=== PATIENT | male | born 1975 | race African-American/Black ===

== ENCOUNTER 2019-08-20 17:29 | Inpatient (IN) | payer OTHER ==
[2019-08-20 20:29] VITALS: BMI 29.5
--- NOTE | 2019-08-21 01:41 | HP ---
CIWA Score Nausea/Vomitin-Mild Nausea/No Vomiting Muscle Tremors: 4-Moderate,w/Arms Extend Anxiety: 3 Agitation: 3 Paroxysmal Sweats: No Perspiration Orientation: 0-Oriented Tacttile Disturbances: 0-None Auditory Disturbances: 0-None Visual Disturbances: 1-Very Mild Sensitivity Headache: 2-Mild CIWA-Ar Total Score: 14 - Admission Criteria [facility]ASAS Guidelines: Admission for Medically Managed Detox: Requires at least one of the followin. CIWA greater than 12 2. Seizures within the past 24 hours 3. Delirium tremens within the past 24 hours 4. Hallucinations within the past 24 hours 5. Acute intervention needed for co occurring medical disorder 6. Acute intervention needed for co occurring psychiatric disorder 7. Severe withdrawal that cannot be handled at a lower level of care (continued vomiting, continued diarrhea, abnormal vital signs) requiring intravenous medication and/or fluids 8. Admission ROS [facility] Chief Complaint: Alcohol withdrawal symptoms Allergies/Adverse Reactions: Allergies Allergy/AdvReac Type Severity Reaction Status Date / Time Pork/Porcine Containing Allergy Verified 08/20/19 20:17 Products History of Present Illness: Alcohol withdrawal symptoms - Ebola screening Have you traveled outside of the country in the last 21 days: No (N) Have you had contact with anyone from an Ebola affected area: No Do you have a fever: No - Review of Systems Constitutional: Chills, Malaise, Night Sweats, Changes in sleep EENT: reports: Nose Congestion Respiratory: reports: No Symptoms reported Cardiac: reports: No Symptoms Reported GI: reports: Abdominal Distended, Vomiting : reports: No Symptoms Reported Musculoskeletal: reports: No Symptoms Reported Integumentary: reports: Dryness, Flushing Neuro: reports: Tremors Endocrine: reports: No Symptoms Reported Hematology: reports: No Symptoms Reported Psychiatric: reports: Judgement Intact Other Systems: Reviewed and Negative Patient History - Patient Medical History Hx Anemia: No Hx Asthma: Yes (Albuterol) Hx Chronic Obstructive Pulmonary Disease (COPD): No Hx Cancer: No Hx Cardiac Disorders: No Hx Hypertension: No Hx Hypercholesterolemia: No Hx Pacemaker: No HX Cerebrovascular Accident: No Hx Seizures: No Hx Diabetes: No Hx Gastrointestinal Disorders: Yes (GERD) Hx Liver Disease: No Hx Genitourinary Disorders: No Hx Sexually Transmitted Disorders: No Hx Renal Disease (ESRD): No Hx Thyroid Disease: No Hx Human Immunodeficiency Virus (HIV): Yes Hx Hepatitis C: No Hx Depression: Yes Hx Suicide Attempt: No (Denies suicidal ideation at this time) Hx Bipolar Disorder: No Hx Schizophrenia: No - Patient Surgical History Past Surgical History: No - PPD History Previous Implant?: No Documented Results: Negative w/proof Implanted On Prior R Admission?: No PPD to be Administered?: Yes - Reproductive History Patient is a Female of Child Bearing Age (11 -55 yrs old): No (male) Patient : No - Smoking Cessation Smoking history: Current every day smoker Have you smoked in the past 12 months: Yes Hx Chewing Tobacco Use: Yes Initiated information on smoking cessation: No - Substance & Tx. History Hx Alcohol Use: No Hx Substance Use: No - Substances abused Alcohol Substance route: Oral Frequency: Daily Amount used: liquor- 1 pint, beer- 1 six pack Age of first use: 15 Date of last use: 08/20/19 Crack Substance route: Smoking Frequency: Daily Amount used: $100 worth Age of first use: 29 Date of last use: 08/20/19 Admission Physical Exam [facility] - Vital Signs Vital Signs: Vital Signs - 24 hr 08/20/19 20:12 Temperature 96.9 F L Pulse Rate 87 Respiratory 16 Rate Blood Pressure 109/63 - Physical General Appearance: Yes: Moderate Distress HEENTM: Yes: Within Normal Limits Respiratory: Yes: Lungs Clear Neck: Yes: Supple Breast: Yes: Breast Exam Deferred Cardiology: Yes: Regular Rhythm, Regular Rate Abdominal: Yes: Normal Bowel Sounds Genitourinary: Yes: Within Normal Limits Back: Yes: Normal Inspection Musculoskeletal: Yes: Within Normal Limits Extremities: Yes: Normal Capillary Refill Neurological: Yes: Within Normal Limits Integumentary: Yes: Warm Lymphatic: Yes: Within Normal Limits Cleared for Admission S - Detox or Rehab [facility] Level of Care: Medically Managed Detox Regimen/Protocol: Ativan Breathalyzer - Breathalyzer Breathalyzer: 0 Urine Drug Screen - Test Device Lot number: [id number] Expiration date: 04/08/21 - Control Is test valid?: Yes - Results Drug screen NEGATIVE: No Urine drug screen results: THC-Marijuana, SHELLEY-Cocaine Inpatient Rehab Admission - Rehab Decision to Admit Inpatient rehab admission?: No
[2019-08-21] MEDS ORDERED: MAG HYDROX/AL HYDROX/SIMETH 30 ML UNIT-DOSE CUP PO PRN (02:37)
[2019-08-21] MEDS ORDERED: MELATONIN 5 MG TABLETS PO PRN (02:37)
[2019-08-21] MEDS ORDERED: METHOCARBAMOL 500 MG TABLET PO PRN (02:37)
[2019-08-21] MEDS ORDERED: MENTHOL/PHENOL 1 EACH UD MM PRN (02:37)
[2019-08-21] MEDS ORDERED: LORazepam 2 MG TABLET PO ONE (02:37)
[2019-08-21] MEDS ORDERED: hydrOXYzine PAMOATE 25 MG CAPSULE (FP) PO PRN (02:37)
[2019-08-21] MEDS ORDERED: NICOTINE POLACRILEX 2 MG GUM BUC PRN (02:37)
[2019-08-21] MEDS ORDERED: MAGNESIUM HYDROX 2400MG/30ML ORAL SUSPENSION 30 ML CUP PO PRN (02:37)
[2019-08-21] MEDS ORDERED: BISMUTH SUBSALICYLATE 524 MG/30 ML UD PO PRN (02:37)
[2019-08-21] MEDS ORDERED: ACETAMINOPHEN 325 MG TABLET (FP) PO PRN ×2 (02:37)
[2019-08-21] MEDS ORDERED: IBUPROFEN 400 MG TABLET (FP) PO PRN (02:37)
[2019-08-21] MEDS ORDERED: MAGNESIUM CITRATE 300 ML BOTTLE PO PRN (02:37)
[2019-08-21] MEDS ORDERED: LORazepam 1 MG TABLET PO PRN (02:37)
[2019-08-21] MEDS ORDERED: METHIMAZOLE 5 MG TABLET (FP) PO SCH (10:00)
[2019-08-21] MEDS ORDERED: PATIENT'S OWN MEDICATION (NON-FORMULARY) (Ranitidine Hcl [Zantac] 150 MG) PO SCH (10:00)
[2019-08-21] MEDS: PRENATAL VITAMINS W/ FOLIC ACID TABLET (FP) PO SCH (10:56)
[2019-08-21] MEDS: METHIMAZOLE 5 MG PO SCH (10:56)
[2019-08-21] MEDS: ALBUTEROL SO4 8 GM HFA INHALER IH SCH ×2 (10:58→22:47)
[2019-08-21] MEDS: NICOTINE 14 MG/24 HOURS TOPICAL PATCH TD SCH (11:05)
--- NOTE | 2019-08-21 12:30 | PN ---
[facility] CIWA - CIWA Score Nausea/Vomitin-Mild Nausea/No Vomiting Muscle Tremors: 2 Anxiety: 3 Agitation: 3 Paroxysmal Sweats: No Perspiration Orientation: 0-Oriented Tacttile Disturbances: 1-Very Mild Itch/Numbness Auditory Disturbances: 0-None Visual Disturbances: 0-None Headache: 2-Mild CIWA-Ar Total Score: 12 BHS Progress Note (SOAP) Subjective: alert,irritable,anxious,tremor,agitated,interrupted sleep,pain in the bodywheelchair bound Objective: 08/21/19 12:30 Vital Signs Temperature 97.8 F 08/21/19 09:15 Pulse Rate 101 H 08/21/19 09:15 Respiratory Rate 18 08/21/19 09:15 Blood Pressure 106/55 L 08/21/19 09:15 O2 Sat by Pulse Oximetry (%) Assessment: 08/21/19 12:30 withdrawal symptom Plan: continue detox ativan regimen,continue amoxicillin 500 mgs po tid,biktarvy, address the medications patient agree to take pepcid 20 mgs po daily instead of zantac
--- NOTE | 2019-08-21 12:58 | EKG ---
Test Reason : Blood Pressure : / mmHG Vent. Rate : 065 BPM Atrial Rate : 065 BPM P-R Int : 126 ms QRS Dur : 090 ms QT Int : 402 ms P-R-T Axes : 044 052 037 degrees QTc Int : 418 ms NORMAL SINUS RHYTHM NORMAL ECG NO PREVIOUS ECGS AVAILABLE Confirmed by MONTSE MO MD ([id number]) on 08/21/2019 12:58:08 PM Referred By: EMMA Confirmed By:MONTSE MO MD
[2019-08-21] MEDS: PATIENT'S OWN MEDICATION (NON-FORMULARY) (Bictegrav/Emtricit/Tenofov Ala 1 EACH) PO SCH (13:43)
[2019-08-21] MEDS: FAMOTIDINE 20 MG TABLET PO SCH (13:44)
[2019-08-21] MEDS: THIAMINE HCL 100 MG TABLET (FP) PO SCH (22:45)
[2019-08-21] MEDS: LORazepam 2 MG TABLET PO SCH (22:45)
[2019-08-22] MEDS: LORazepam 2 MG TABLET PO SCH ×4 (06:03→22:59)
[2019-08-22] MEDS: METHIMAZOLE 5 MG PO SCH (10:10)
[2019-08-22] MEDS: PATIENT'S OWN MEDICATION (NON-FORMULARY) (Bictegrav/Emtricit/Tenofov Ala 1 EACH) PO SCH (10:10)
[2019-08-22] MEDS: PRENATAL VITAMINS W/ FOLIC ACID TABLET (FP) PO SCH (10:11)
[2019-08-22] MEDS: FAMOTIDINE 20 MG TABLET PO SCH (10:11)
[2019-08-22] MEDS: ALBUTEROL SO4 8 GM HFA INHALER IH SCH ×2 (10:11→22:58)
[2019-08-22] MEDS: NICOTINE 14 MG/24 HOURS TOPICAL PATCH TD SCH (10:13)
[2019-08-22 10:37] LABS: HEMATOCRIT 39.7 % (35.4-49); HEMOGLOBIN 13.2 GM/dL (11.7-16.9); MCH 32.3 pg (25.7-33.7); MCHC 33.2 g/dl (32.0-35.9); MEAN CELL VOLUME 97.4 fl (80-96); MEAN PLT VOLUME 8.4 fl (7.5-11.1); PLATELET COUNT 269 K/MM3 (134-434); RBC 4.07 M/mm3 (4.00-5.60); RDW 13.9 % (11.9-15.9)
[2019-08-22 10:49] LABS: ALBUMIN 3.4 g/dl (3.4-5.0); BILIRUBIN,TOTAL 0.3 mg/dL (0.2-1); BLOOD UREA NITROGEN 12.6 mg/dL (7-18); CALCIUM 8.6 mg/dL (8.5-10.1); POTASSIUM 4.1 mmol/L (3.5-5.1)
--- NOTE | 2019-08-22 11:11 | PN ---
S CIWA - CIWA Score Nausea/Vomitin-No Nausea/No Vomiting Muscle Tremors: 2 Anxiety: 3 Agitation: 0-Normal Activity Paroxysmal Sweats: 3 Orientation: 0-Oriented Tacttile Disturbances: 0-None Auditory Disturbances: 0-None Visual Disturbances: 0-None Headache: 2-Mild CIWA-Ar Total Score: 10 S Progress Note (SOAP) Subjective: c/o headache, sweats, anxiety, and mild shakes. Objective: 08/22/19 11:10 Vital Signs 08/22/19 08/22/19 08/22/19 03:30 06:03 09:16 Pulse Rate 80 88 Respiratory 18 18 18 Rate Blood Pressure 97/60 100/59 L Laboratory Last Values WBC 3.0 K/mm3 (4.0-10.0) L 08/22/19 08:10 RBC 4.07 M/mm3 (4.00-5.60) 08/22/19 08:10 Hgb 13.2 GM/dL (11.7-16.9) 08/22/19 08:10 Hct 39.7 % (35.4-49) 08/22/19 08:10 MCV 97.4 fl (80-96) H 08/22/19 08:10 MCH 32.3 pg (25.7-33.7) 08/22/19 08:10 MCHC 33.2 g/dl (32.0-35.9) 08/22/19 08:10 RDW 13.9 % (11.9-15.9) 08/22/19 08:10 Plt Count 269 K/MM3 (134-434) 08/22/19 08:10 MPV 8.4 fl (7.5-11.1) 08/22/19 08:10 Sodium 141 mmol/L (136-145) 08/22/19 08:10 Potassium 4.1 mmol/L (3.5-5.1) 08/22/19 08:10 Chloride 107 mmol/L (98-107) 08/22/19 08:10 Carbon Dioxide 26 mmol/L (21-32) 08/22/19 08:10 Anion Gap 8 MMOL/L (8-16) 08/22/19 08:10 BUN 12.6 mg/dL (7-18) 08/22/19 08:10 Creatinine 1.0 mg/dL (0.55-1.3) 08/22/19 08:10 Est GFR (CKD-EPI)AfAm 107.12 08/22/19 08:10 Est GFR (CKD-EPI)NonAf 92.42 08/22/19 08:10 Random Glucose 133 mg/dL (74-106) H 08/22/19 08:10 Calcium 8.6 mg/dL (8.5-10.1) 08/22/19 08:10 Total Bilirubin 0.3 mg/dL (0.2-1) 08/22/19 08:10 AST 38 U/L (15-37) H 08/22/19 08:10 ALT 54 U/L (13-61) 08/22/19 08:10 Alkaline Phosphatase 72 U/L (45-117) 08/22/19 08:10 Total Protein 6.0 g/dl (6.4-8.2) L 08/22/19 08:10 Albumin 3.4 g/dl (3.4-5.0) 08/22/19 08:10 Labs noted. Assessment: 08/22/19 11:10 AOX3, in no acute respiratory distress. Full ROM, ambulating in the unit. Withdrawal symptoms. Plan: continue detox.
[2019-08-22] MEDS: THIAMINE HCL 100 MG TABLET (FP) PO SCH (22:59)
[2019-08-23] MEDS: LORazepam 1 MG TABLET PO SCH ×4 (05:36→22:49)
[2019-08-23] MEDS: METHIMAZOLE 5 MG PO SCH (10:00)
[2019-08-23] MEDS: PATIENT'S OWN MEDICATION (NON-FORMULARY) (Bictegrav/Emtricit/Tenofov Ala 1 EACH) PO SCH (10:00)
[2019-08-23] MEDS: PRENATAL VITAMINS W/ FOLIC ACID TABLET (FP) PO SCH (10:01)
[2019-08-23] MEDS: FAMOTIDINE 20 MG TABLET PO SCH (10:01)
[2019-08-23] MEDS: NICOTINE 14 MG/24 HOURS TOPICAL PATCH TD SCH (10:02)
[2019-08-23] MEDS: ALBUTEROL SO4 8 GM HFA INHALER IH SCH ×2 (10:02→21:15)
--- NOTE | 2019-08-23 13:17 | PN ---
S CIWA - CIWA Score Nausea/Vomitin-No Nausea/No Vomiting Muscle Tremors: 2 Anxiety: 2 Agitation: 1-Slight > Activity Paroxysmal Sweats: No Perspiration Orientation: 0-Oriented Tacttile Disturbances: 0-None Auditory Disturbances: 0-None Visual Disturbances: 0-None Headache: 0-None Present CIWA-Ar Total Score: 5 BHS Progress Note (SOAP) Subjective: 44 years old male admitted on 08/21/19 for alcohol withdrawal sx management treating with ativan detox regimen ambulating with [employer] wheelchair on hallway patient states that his wheelchair is in his "property" with the security wheelchair x "a long time" due to weakness of the hips and knees patient requests to leave the detox on 08/24/19 instead of estimated discharge date of 08/25/19 patent wants to begin recovery journey tomorrow to aftercare facility Objective: 08/23/19 13:16 Vital Signs Temperature 96.6 F L 08/23/19 13:09 Pulse Rate 94 H 08/23/19 13:09 Respiratory Rate 18 08/23/19 13:09 Blood Pressure 112/62 08/23/19 13:09 O2 Sat by Pulse Oximetry (%) Laboratory Last Values WBC 3.0 K/mm3 (4.0-10.0) L 08/22/19 08:10 RBC 4.07 M/mm3 (4.00-5.60) 08/22/19 08:10 Hgb 13.2 GM/dL (11.7-16.9) 08/22/19 08:10 Hct 39.7 % (35.4-49) 08/22/19 08:10 MCV 97.4 fl (80-96) H 08/22/19 08:10 MCH 32.3 pg (25.7-33.7) 08/22/19 08:10 MCHC 33.2 g/dl (32.0-35.9) 08/22/19 08:10 RDW 13.9 % (11.9-15.9) 08/22/19 08:10 Plt Count 269 K/MM3 (134-434) 08/22/19 08:10 MPV 8.4 fl (7.5-11.1) 08/22/19 08:10 Sodium 141 mmol/L (136-145) 08/22/19 08:10 Potassium 4.1 mmol/L (3.5-5.1) 08/22/19 08:10 Chloride 107 mmol/L (98-107) 08/22/19 08:10 Carbon Dioxide 26 mmol/L (21-32) 08/22/19 08:10 Anion Gap 8 MMOL/L (8-16) 08/22/19 08:10 BUN 12.6 mg/dL (7-18) 08/22/19 08:10 Creatinine 1.0 mg/dL (0.55-1.3) 08/22/19 08:10 Est GFR (CKD-EPI)AfAm 107.12 08/22/19 08:10 Est GFR (CKD-EPI)NonAf 92.42 08/22/19 08:10 Random Glucose 133 mg/dL (74-106) H 08/22/19 08:10 Calcium 8.6 mg/dL (8.5-10.1) 08/22/19 08:10 Total Bilirubin 0.3 mg/dL (0.2-1) 08/22/19 08:10 AST 38 U/L (15-37) H 08/22/19 08:10 ALT 54 U/L (13-61) 08/22/19 08:10 Alkaline Phosphatase 72 U/L (45-117) 08/22/19 08:10 Total Protein 6.0 g/dl (6.4-8.2) L 08/22/19 08:10 Albumin 3.4 g/dl (3.4-5.0) 08/22/19 08:10 RPR Titer Nonreactive (NONREACTIVE) 08/22/19 08:10 lab noted patient agrees to bringing in lab report to ID provider for follow health teaching on weight loss Assessment: 08/23/19 13:17 alcohol withdrawal Plan: ativan regimen
[2019-08-23] MEDS ORDERED: BUDESONIDE/FORMETEROL FUMARATE 80/4.5 mcg INHALER IH SCH (22:00)
[2019-08-23] MEDS: THIAMINE HCL 100 MG TABLET (FP) PO SCH (22:49)
[2019-08-24] MEDS ORDERED: LORazepam 0.5 MG TABLET PO PRN
[2019-08-24] MEDS ORDERED: LORazepam 0.5 MG TABLET PO SCH (05:00)
[2019-08-24 09:16] VITALS: BP 140/82; PULSE 93; TEMP 97.8
--- NOTE | 2019-08-24 09:45 | DS ---
[facility] Detox Discharge Summary Admission Date: 08/21/19 Discharge Date: 08/24/19 - History Present History: Alcohol Dependence Additional Comments: 44 years old male admitted on 08/21/19 for alcohol withdrawal sx management treated with ativan detox regimen patient tolerated well alert oriented x 3 cardiac s1s2 regular rate rhythm respiratory clear lung bilaterally on auscultation ambulating with wheelchair skin warm and dry Pertinent Past History: patient prefers to leave the detox facility one day early than estimated date on 08/25/19 reports feeling better today case discuss with the nurse that routine discharge is appropriated - Physical Exam Results Vital Signs: Vital Signs Temperature 97.8 F 08/24/19 09:16 Pulse Rate 93 H 08/24/19 09:16 Respiratory Rate 18 08/24/19 09:16 Blood Pressure 140/82 08/24/19 09:16 O2 Sat by Pulse Oximetry (%) Pertinent Admission Physical Exam Findings: alcohol withdrawal Laboratory Last Values WBC 3.0 K/mm3 (4.0-10.0) L 08/22/19 08:10 RBC 4.07 M/mm3 (4.00-5.60) 08/22/19 08:10 Hgb 13.2 GM/dL (11.7-16.9) 08/22/19 08:10 Hct 39.7 % (35.4-49) 08/22/19 08:10 MCV 97.4 fl (80-96) H 08/22/19 08:10 MCH 32.3 pg (25.7-33.7) 08/22/19 08:10 MCHC 33.2 g/dl (32.0-35.9) 08/22/19 08:10 RDW 13.9 % (11.9-15.9) 08/22/19 08:10 Plt Count 269 K/MM3 (134-434) 08/22/19 08:10 MPV 8.4 fl (7.5-11.1) 08/22/19 08:10 Sodium 141 mmol/L (136-145) 08/22/19 08:10 Potassium 4.1 mmol/L (3.5-5.1) 08/22/19 08:10 Chloride 107 mmol/L (98-107) 08/22/19 08:10 Carbon Dioxide 26 mmol/L (21-32) 08/22/19 08:10 Anion Gap 8 MMOL/L (8-16) 08/22/19 08:10 BUN 12.6 mg/dL (7-18) 08/22/19 08:10 Creatinine 1.0 mg/dL (0.55-1.3) 08/22/19 08:10 Est GFR (CKD-EPI)AfAm 107.12 08/22/19 08:10 Est GFR (CKD-EPI)NonAf 92.42 08/22/19 08:10 Random Glucose 133 mg/dL (74-106) H 08/22/19 08:10 Calcium 8.6 mg/dL (8.5-10.1) 08/22/19 08:10 Total Bilirubin 0.3 mg/dL (0.2-1) 08/22/19 08:10 AST 38 U/L (15-37) H 08/22/19 08:10 ALT 54 U/L (13-61) 08/22/19 08:10 Alkaline Phosphatase 72 U/L (45-117) 08/22/19 08:10 Total Protein 6.0 g/dl (6.4-8.2) L 08/22/19 08:10 Albumin 3.4 g/dl (3.4-5.0) 08/22/19 08:10 RPR Titer Nonreactive (NONREACTIVE) 08/22/19 08:10 lab noted patient agrees to bring in lab report to ID provider for follow up - Treatment Hospital Course: Detox Protocol Followed, Detoxed Safely, Responded well, Discharged Condition Good, Rehab Referral Accepted Patient has Accepted a Re[facility] Referral to: [facility] - Medication Discharge Medications: Ambulatory Orders Albuterol Sulfate Inhaler - [Ventolin HFA Inhaler -] 2 inh PO BID 08/20/19 Amoxicillin - [Amoxicillin 500mg Capsule -] 500 mg PO TID 08/20/19 Bictegrav/Emtricit/Tenofov Ala [Biktarvy 50-200-25 mg Tablet] 1 each PO DAILY Ibuprofen [Motrin -] 800 mg PO PRN 08/20/19 Methimazole [Tapazole] 5 mg PO DAILY 08/20/19 Ranitidine HCl [Zantac] 150 mg PO DAILY 08/20/19 Budesonide/Formeterol Fumarate [SYMBICORT 80/4.5mcg -] 1 inh PO BID 08/23/19 - Diagnosis (1) Alcohol dependence, uncomplicated Status: Acute (2) HIV (human immunodeficiency virus infection) Status: Chronic Qualifiers: HIV symptom status: asymptomatic Qualified Code(s): Z21 - Asymptomatic human immunodeficiency virus [HIV] infection status (3) Asthma Status: Chronic Qualifiers: Asthma severity: mild Asthma persistence: intermittent Asthma complication type: with status asthmaticus Qualified Code(s): J45.22 - Mild intermittent asthma with status asthmaticus (4) COPD (chronic obstructive pulmonary disease) Status: Chronic 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 Qualified Code(s): J43.8 - Other emphysema (5) Hyperthyroidism Status: Chronic (6) GERD (gastroesophageal reflux disease) Status: Chronic Qualifiers: Esophagitis presence: without esophagitis Qualified Code(s): K21.9 - Gastro -esophageal reflux disease without esophagitis - AMA Did Patient Leave Against Medical Advice: No CIWA Score - CIWA Score Nausea/Vomitin-No Nausea/No Vomiting Muscle Tremors: 2 Anxiety: 1-Mildly Anxious Agitation: 0-Normal Activity Paroxysmal Sweats: No Perspiration Orientation: 0-Oriented Tacttile Disturbances: 0-None Auditory Disturbances: 0-None Visual Disturbances: 0-None Headache: 0-None Present CIWA-Ar Total Score: 3
[2019-08-25] MEDS ORDERED: LORazepam 0.5 MG TABLET PO ONE (05:00)
== END 2019-08-24 09:38 | disposition home or self-care (01) | DRG 897 ==
LOC: YASAS 17:29 → Y3N 08-21 01:55
PROVIDERS: ADMIT Allergy & Immunology; ATTEND Allergy & Immunology
PROC: HZ2ZZZZ Detoxification Services for Substance Abuse Treatment (ICD-10-PCS; principal; 2019-08-21)
DX: F10.230 Alcohol dependence with withdrawal, uncomplicated (principal); F14.20 Cocaine dependence, uncomplicated; J45.22 Mild intermittent asthma with status asthmaticus; F17.210 Nicotine dependence, cigarettes, uncomplicated; Z21 Asymptomatic human immunodeficiency virus [HIV] infection status; J43.8 Other emphysema; E05.90 Thyrotoxicosis, unspecified without thyrotoxic crisis or storm; K21.9 Gastro-esophageal reflux disease without esophagitis; Z91.018 Allergy to other foods
CPT/HCPCS: 36415; 80053; 85027; 86593; 93005; 93010

== ENCOUNTER 2024-04-15 20:01 | Inpatient (IN) | payer OTHER ==
[2024-04-15] MEDS ORDERED: DICYCLOMINE HCL 10 MG CAPSULE PO PRN (22:11)
[2024-04-15] MEDS ORDERED: MAGNESIUM HYDROX 2400MG/30ML ORAL SUSPENSION 30 ML CUP PO PRN (22:11)
[2024-04-15] MEDS ORDERED: ONDANSETRON *ODT* 4 MG TABLET SL PRN (22:11)
[2024-04-15] MEDS ORDERED: guaiFENesin 600 MG TABLET.ER (FP) PO PRN (22:11)
[2024-04-15] MEDS ORDERED: ACETAMINOPHEN 325 MG TABLET (FP) PO PRN (22:11)
[2024-04-15] MEDS ORDERED: NALOXONE (NARCAN) HCL 4 MG/0.1 ML SPRAY NS PRN (22:11)
[2024-04-15] MEDS ORDERED: IBUPROFEN 400 MG TABLET (FP) PO PRN (22:11)
[2024-04-15] MEDS ORDERED: IBUPROFEN 600 MG TABLET (FP) PO PRN (22:11)
[2024-04-15] MEDS ORDERED: NICOTINE POLACRILEX 4 MG GUM BUC PRN (22:11)
[2024-04-15] MEDS ORDERED: hydrOXYzine PAMOATE 25 MG CAPSULE (FP) PO PRN (22:11)
[2024-04-15] MEDS ORDERED: METHOCARBAMOL 500 MG TABLET PO PRN (22:11)
[2024-04-15] MEDS ORDERED: MAG HYDROX/AL HYDROX/SIMETH 30 ML UNIT-DOSE CUP PO PRN (22:11)
[2024-04-15] MEDS ORDERED: LOPERAMIDE HCL 2 MG CAPSULE PO PRN (22:11)
[2024-04-15] MEDS ORDERED: NALOXONE HCL 0.4 MG/ML VIAL IM PRN (22:11)
[2024-04-15] MEDS ORDERED: BENZOCAINE/MENTHOL (CHLORASEPTIC ) LOZENGE MM PRN (22:11)
[2024-04-15] MEDS ORDERED: POLYETHYLENE GLYCOL (HEALTHYLAX) 3350 17 GM PACKET PO PRN (22:11)
[2024-04-15] MEDS ORDERED: BENZONATATE 200 MG CAPSULE PO PRN (22:11)
[2024-04-15] MEDS ORDERED: BISMUTH SUBSALICYLATE 524 MG/30 ML PO PRN (22:11)
[2024-04-15 22:17] VITALS: BMI 29.3
[2024-04-15] MEDS ORDERED: ALBUTEROL SO4 HFA INHALER IH PRN (22:19)
[2024-04-16] MEDS: BICTEGRAV/EMTRICIT/TENOFOV (BIKTARVY) 50-200-25 MG TABLET PO SCH (08:47)
[2024-04-16] MEDS ORDERED: chlordiazePOXIDE HCL 25 MG CAPSULE PO PRN (08:55)
[2024-04-16] MEDS: NICOTINE 14 MG/24 HOURS TOPICAL PATCH TD SCH (10:34)
[2024-04-16] MEDS: BUDESONIDE/FORMETEROL FUMARATE 80/4.5 mcg INHALER IH SCH (10:34)
[2024-04-16] MEDS: FAMOTIDINE 20 MG TABLET PO SCH (10:36)
[2024-04-16] MEDS: PRENATAL VITAMINS W/ FOLIC ACID TABLET (FP) PO SCH (10:37)
[2024-04-16] MEDS: chlordiazePOXIDE HCL 25 MG CAPSULE PO SCH (10:37)
[2024-04-16] MEDS: SILVER SULFADIAZINE 1% TOP CREAM 400 GM JAR TP SCH (11:14)
[2024-04-16 11:36] LABS: POTASSIUM 3.8 mmol/L (3.5-5.1)
[2024-04-16 11:46] LABS: ALBUMIN 3.4 g/dl (3.4-5.0); CALCIUM 8.7 mg/dL (8.5-10.1)
[2024-04-16 11:47] LABS: BLOOD UREA NITROGEN 22.9 mg/dL (7-18)
[2024-04-16 11:49] LABS: BASO % 0.7 % (0-2.0); BILIRUBIN,TOTAL 0.6 mg/dL (0.2-1); CREATININE 1.1 mg/dL (0.55-1.3); EOS % 5.2 % (0-4.5); HEMATOCRIT 38.3 % (35.4-49); HEMOGLOBIN 12.6 GM/dL (11.7-16.9); LYMPH % 24.3 % (8-40); MCH 31.8 pg (25.7-33.7); MCHC 32.8 g/dl (32.0-35.9); MEAN CELL VOLUME 97.1 fl (80-96); MEAN PLT VOLUME 8.4 fl (7.5-11.1); MONO % 14.4 % (3.8-10.2); NEUT % 55.4 % (42.8-82.8); PLATELET COUNT 234 10^3/uL (134-434); RBC 3.95 M/mm3 (4.00-5.60); RDW 13.6 % (11.9-15.9); TOT PROT 6.2 g/dl (6.4-8.2); WHITE BLOOD COUNT 4.6 K/mm3 (4.0-10.0)
[2024-04-16] MEDS: THIAMINE 100 MG TABLET PO SCH (23:03)
[2024-04-16] MEDS: MELATONIN 5 MG TABLETS PO SCH (23:04)
[2024-04-17 06:37] VITALS: RESP 16
[2024-04-17 09:15] VITALS: BP 103/63; PULSE 80; TEMP 97.7
[2024-04-18] MEDS ORDERED: chlordiazePOXIDE HCL 25 MG CAPSULE PO SCH (05:00)
[2024-04-19] MEDS ORDERED: chlordiazePOXIDE HCL 10 MG CAPSULE PO PRN
[2024-04-19] MEDS ORDERED: chlordiazePOXIDE HCL 10 MG CAPSULE PO SCH (05:00)
[2024-04-20] MEDS ORDERED: chlordiazePOXIDE HCL 10 MG CAPSULE PO SCH (05:00)
[2024-04-21] MEDS ORDERED: chlordiazePOXIDE HCL 10 MG CAPSULE PO ONE (05:00)
== END 2024-04-17 12:27 | disposition left against medical advice (07) | DRG 894 ==
LOC: YASAS 20:01 → Y6N 22:50
PROVIDERS: ADMIT Allergy & Immunology; ATTEND Surgery
PROC: HZ2ZZZZ Detoxification Services for Substance Abuse Treatment (ICD-10-PCS; principal; 2024-04-15)
DX: F10.230 Alcohol dependence with withdrawal, uncomplicated (principal); F14.20 Cocaine dependence, uncomplicated; M87.00 Idiopathic aseptic necrosis of unspecified bone; F17.210 Nicotine dependence, cigarettes, uncomplicated; J45.909 Unspecified asthma, uncomplicated; K21.9 Gastro-esophageal reflux disease without esophagitis; Z21 Asymptomatic human immunodeficiency virus [HIV] infection status; Z99.3 Dependence on wheelchair
CPT/HCPCS: 36415; 80053; 80305; 80307; 85025; 86593; 86780; 93005; 93010